=== PATIENT | female | born 1935 | race Caucasian/White ===

== ENCOUNTER 2024-05-23 14:40 | Emergency (ER) | payer OTHER ==
[~2024-05-23] VITALS: Ht 154.9 cm; Wt 56.0 kg
[2024-05-23 15:08] VITALS: O2SAT 100
[2024-05-23 16:45] VITALS: BP 149/76; PULSE 68; RESP 10; TEMP 36.72516; O2SAT 100
[2024-05-23] MEDS ORDERED: NAPR-681 MT (16:49)
[2024-05-23] MEDS: KETOROLAC 30MG/ML VIAL IM ONE (17:07)
== END 2024-05-23 17:16 | disposition home or self-care (01) ==
LOC: ER 14:40
DX: S69.81XA Other specified injuries of right wrist, hand and finger(s), initial encounter (principal); I10 Essential (primary) hypertension; X58.XXXA Exposure to other specified factors, initial encounter; Y93.89 Activity, other specified; Y92.89 Other specified places as the place of occurrence of the external cause; Y99.8 Other external cause status
CPT/HCPCS: 99283; 73130; 29125; 96372; J1885